=== PATIENT | female | born 1935 | race Caucasian/White ===

== ENCOUNTER 2017-05-27 16:36 | Observation (INO) | payer MEDICARE ==
[~2017-05-27] VITALS: Ht 152.4 cm; Wt 52.6 kg
[~2017-05-27 16:36] MED LIST: ACETIC ACID2 % AS; ACETIC ACID2 % OT; AMLODIPINE5 MG PO; AZITHROMYCIN500 MG OR; BROVANA15 MCG IN; BUDESONID2 IN; CALCITONIN200 MG/ACT; CLONAZEP ODT0.25 MG PO; CYANOCOBALAM1000 MCG IM; DEPO-MEDROL40 MG/ML IM; DOXYCYCL HYC100 MG OR; EQ IBUPROFEN200 MG PO; EVOXAC30 MG OR; FISH OIL1000 M1 PO; FLEXERIL5 M1 PO; FLOVENT DISK100 MCG IN; FLOVENT DISK250 MCG IN; FLOVENT HFA44 MCG; FLUOXETINE10 M3 PO; FUROSEMIDE20 MG PO; GABAPENTIN100 MG PO; GABAPENTIN300 MG PO; HYDROCHLORO25 MG/TAB PO; HYDROCHLOROT12.5 MG PO; HYDROCHLOROT25 MG; HYDROCHLOROT25 MG OR; K-DUR/KLOR-CON10 MEQ PO; LASIX 20 MG TAB20 MG PO; LEVALBUTERO1; LEVAQUIN500 MG PO; LEXAPRO5 MG PO; LYRICA25 MG PO; MEDDOSEPAK; MILK OF MAG2 PO; MINOCYCLINE100 MG PO; MUCINEX600 MG; MUCINEX600 MG OR; MYCOSTATIN100000 UNI; NEURONTIN100 MG PO; NYSTATIN100000 M1 OR; ONDANSETRON4 MG; PANTANASE; PERFOROMIST20 MCG IN; POLYTRIM OU; PREDNISODT10 OR; PROAIR HFA IN; PROVENTIL HFA IN; RAYOS5 MG PO; RYBIX ODT50 MG PO; SINGULAIR PO; SOLU-MEDROL125 MG IM; TETRACYCLINE250 MG PO; THEO-24200 MG PO; TIZANIDINE HCL4 MG OR; TIZANIDINE4 MG PO; TRAMADOL HCL50 MG PO; TRIVITA; VICODIN1 TA1 PO; WAL-PROFEN200 M1 PO; XANAX0.25 MG PO; XOPENEX0.63 MG; XOPENEX0.63 MG INH; ZITHROMAX250 MG PO; ZITHROMAX500 MG PO; ZPAK PO; [UNRECOGNIZED DRUG - CODE] PO; [UNRECOGNIZED DRUG - OTHER]; [UNRECOGNIZED DRUG - OTHER]
[2017-05-27 17:10] LABS: HEMATOCRIT 37.5 % (37.0-47.0); HEMOGLOBIN 12.5 g/dl (12.0-16.0); IMMATURE GRANULOCYTES 0.5 % (0.0-1.0); MEAN CELL VOLUME 90.8 fL CALC (80.0-100.0); MEAN CORPUSCULAR HGB 30.3 pG CALC (26.0-32.0); MEAN CORPUSCULAR HGB CONC 33.3 g/L CALC (32.0-36.0); NEUT# 7.98 thou/uL (2.00-7.15); RED BLOOD COUNT 4.13 mill/uL (4.20-5.60); RED CELL DISTRI WIDTH 13.5 % (11.5-15.5)
[2017-05-27 17:12] LABS: URINE BILIRUBIN - DIPSTICK NEGATIVE (NEGATIVE); URINE BLOOD DIPSTICK NEGATIVE (NEGATIVE); URINE COLOR YELLOW; URINE GLUCOSE - DIPSTICK NEGATIVE (NEGATIVE); URINE KETONE NEGATIVE (NEGATIVE); URINE LEUK ESTERASE NEGATIVE (NEGATIVE); URINE NITRITE - DIPSTICK NEGATIVE (Negative); URINE PROTEIN - DIPSTICK TRACE mg/dL (NEG-TRACE); URINE UROBILINOGEN - DIPSTICK 0.2 E.U./dL (0.2)
[2017-05-27 17:15] LABS: BARBITURATES NEGATIVE (NEGATIVE); COCAINE NEGATIVE (NEGATIVE); METHADONE NEGATIVE (NEGATIVE); OXCYCODONE NEGATIVE (NEGATIVE); TETRAHYDROCANNABIONOL NEGATIVE (NEGATIVE); TRICYLIC ANTIDEPRESSANTS NEGATIVE (NEGATIVE); URINE CLARITY CLEAR
[2017-05-27 17:27] LABS: ALBUMIN 4.5 g/dL (3.2-5.0); ANION GAP 19 (6-22 (CALC)); BILIRUBIN, TOTAL 0.4 mg/dL (0.0-1.4); BUN 20 mg/dL (8-23); BUN/CREATININE RATIO 23 (12-20 (CALC)); CARBON DIOXIDE 27 mmol/l (22-30); CHLORIDE 96 mmol/l (95-108); CREATININE 0.8 mg/dL (0.5-1.0); GFR > 60 ML/MIN (>=60 (CALC)); GFR FOR AFR.AMER. > 60 ML/MIN (>=60 (CALC)); POTASSIUM 3.9 mmol/l (3.5-5.1); SGOT/AST 20 u/l (9-36); SGPT/ALT 34 u/l (11-66); SODIUM 138 mmol/l (137-146); TOTAL PROTEIN 7.5 g/dL (6.3-8.2)
[2017-05-27 17:30] LABS: ALKALINE PHOSPHATASE 134 u/l (38-126)
[2017-05-27] MEDS ORDERED: SINGULAIR10 MG PO (17:55)
[2017-05-27] MEDS ORDERED: FLONASE AL50 MCG/ACT (17:59)
[2017-05-27] MEDS ORDERED: XANAX0.25 MG PO (18:03)
[2017-05-27] MEDS ORDERED: IBUPROFEN200 MG PO (18:05)
[2017-05-27] MEDS ORDERED: BACLOFEN10 MG PO (18:05)
[2017-05-27] MEDS ORDERED: ZOFRAN ODT4 MG PO (18:06)
[2017-05-27] MEDS ORDERED: LUTEIN40 MG PO (18:07)
[2017-05-27] MEDS ORDERED: STROMECTOL3 MG PO (18:08)
[2017-05-27] MEDS ORDERED: MUCINEX600 MG PO (18:09)
[2017-05-27 19:15] VITALS: BP 174/84
[2017-05-28] VITALS (7 sets, daily range): BP systolic 140–192; BP diastolic 57–78
[2017-05-28 05:46] LABS: HEMATOCRIT 33.9 % (37.0-47.0); HEMOGLOBIN 11.5 g/dl (12.0-16.0); IMMATURE GRANULOCYTES 0.4 % (0.0-1.0); MEAN CELL VOLUME 90.6 fL CALC (80.0-100.0); MEAN CORPUSCULAR HGB 30.7 pG CALC (26.0-32.0); MEAN CORPUSCULAR HGB CONC 33.9 g/L CALC (32.0-36.0); NEUT# 5.01 thou/uL (2.00-7.15); RED BLOOD COUNT 3.74 mill/uL (4.20-5.60); RED CELL DISTRI WIDTH 13.2 % (11.5-15.5)
[2017-05-28 05:50] LABS: ANION GAP 15 (6-22 (CALC)); BUN 14 mg/dL (8-23); BUN/CREATININE RATIO 17 (12-20 (CALC)); CARBON DIOXIDE 29 mmol/l (22-30); CHLORIDE 97 mmol/l (95-108); CREATININE 0.9 mg/dL (0.5-1.0); GFR 60 ML/MIN (>=60 (CALC)); GFR FOR AFR.AMER. > 60 ML/MIN (>=60 (CALC)); POTASSIUM 3.4 mmol/l (3.5-5.1); SODIUM 137 mmol/l (137-146)
[2017-05-29 00:05] VITALS: BP 189/74
[2017-05-29 05:00] LABS: HEMATOCRIT 36.8 % (37.0-47.0); HEMOGLOBIN 12.2 g/dl (12.0-16.0); IMMATURE GRANULOCYTES 0.6 % (0.0-1.0); MEAN CELL VOLUME 92.7 fL CALC (80.0-100.0); MEAN CORPUSCULAR HGB 30.7 pG CALC (26.0-32.0); MEAN CORPUSCULAR HGB CONC 33.2 g/L CALC (32.0-36.0); NEUT# 5.98 thou/uL (2.00-7.15); RED BLOOD COUNT 3.97 mill/uL (4.20-5.60); RED CELL DISTRI WIDTH 13.4 % (11.5-15.5)
[2017-05-29 05:07] VITALS: BP 142/68
[2017-05-29 05:09] LABS: ANION GAP 17 (6-22 (CALC)); BUN 22 mg/dL (8-23); BUN/CREATININE RATIO 24 (12-20 (CALC)); CARBON DIOXIDE 28 mmol/l (22-30); CHLORIDE 95 mmol/l (95-108); CREATININE 0.9 mg/dL (0.5-1.0); GFR 60 ML/MIN (>=60 (CALC)); GFR FOR AFR.AMER. > 60 ML/MIN (>=60 (CALC)); MAGNESIUM 1.9 mg/dL (1.6-2.3); POTASSIUM 3.9 mmol/l (3.5-5.1); SODIUM 136 mmol/l (137-146); TOTAL CHOLESTEROL 263 mg/dl (0-199); TOTAL TRIGLYCERIDES 101 mg/dl (30-149); VLDL CHOLESTROL 20 mg/dl (0-48 (CALC))
[2017-05-29 05:17] LABS: CALCULATED LDLCHOLESTEROL 113 mg/dL (62-129 (CALC)); HDL CHOLESTEROL 130 mg/dL (>=40)
[2017-05-29 08:20] VITALS: BP 131/62
[2017-05-29 11:05] VITALS: BP 162/65
[2017-05-29] MEDS ORDERED: METHYLPRED4 MG PO (13:47)
[2017-05-29] MEDS ORDERED: K-DUR/KLOR-CON20 MEQ PO (13:47)
[2017-05-29] MEDS ORDERED: CALCIUM + D PO (13:50)
[2017-05-29] MEDS ORDERED: B-12-SL1000 MCG SL (13:51)
[2017-05-29] MEDS ORDERED: VITAMIN K100 MC1 PO (13:51)
[2017-05-29] MEDS ORDERED: MAGNESIUM500 M1 PO (13:54)
[2017-05-29] MEDS ORDERED: ADLT ASA LOW81 MG PO (14:09)
[2017-05-29] MEDS ORDERED: LORTAB5 PO (14:09)
[2017-05-29] MEDS ORDERED: XARELTO15 MG PO (14:09)
[2017-05-29] MEDS ORDERED: VALIUM2 MG PO (14:09)
[2017-05-29 16:00] VITALS: BP 151/69
== END 2017-05-29 17:30 | disposition home health service (06) ==
LOC: ED 16:36 → ED-I 17:45 → ED 18:00 → MS2 18:01
PROVIDERS: Emergency Medicine; Nurse Practitioner Family; ADMIT Internal Medicine; ATTEND Internal Medicine
DX: R47.1 Dysarthria and anarthria (principal); I16.0 Hypertensive urgency; I10 Essential (primary) hypertension; M79.7 Fibromyalgia; I48.91 Unspecified atrial fibrillation; J44.9 Chronic obstructive pulmonary disease, unspecified; M81.0 Age-related osteoporosis without current pathological fracture; F41.9 Anxiety disorder, unspecified; F17.210 Nicotine dependence, cigarettes, uncomplicated; E87.6 Hypokalemia; R29.810 Facial weakness; H91.90 Unspecified hearing loss, unspecified ear

== ENCOUNTER 2019-02-15 02:09 | Inpatient (IN) | payer MEDICARE ==
[~2019-02-15] VITALS: Ht 152.4 cm; Wt 57.2 kg
[~2019-02-15 02:09] MED LIST changes: +ADLT ASA LOW81 MG PO; +B-12-SL1000 MCG SL; +BACLOFEN10 MG PO; +CALCIUM + D PO; +FLONASE AL50 MCG/ACT; +IBUPROFEN200 MG PO; +K-DUR/KLOR-CON20 MEQ PO; +LORTAB5 PO; +LUTEIN40 MG PO; +MAGNESIUM500 M1 PO; +METHYLPRED4 MG PO; +MUCINEX600 MG PO; +SINGULAIR10 MG PO; +STROMECTOL3 MG PO; +VALIUM2 MG PO; +VITAMIN K100 MC1 PO; +XARELTO15 MG PO; +ZOFRAN ODT4 MG PO
--- NOTE | 2019-02-15 02:09 | NUR ---
TO ROOM 12 VIA STRETCHER BY EMS
--- NOTE | 2019-02-15 02:50 | NUR ---
2 FAILED ATTEMPTS MADE AT IV ACCESS. PATIENT IS REPOSITIONING HERSELF RAPIDLY ON STRETCHER, ALMOST A JERKING MOTION. STATES BED IS UNCOMFORTABLE AND SHE HAS TO KEEP MOVING TO KEEP HER BACK FROM "GRABBING"
--- NOTE | 2019-02-15 03:15 | NUR ---
IV ESTABLISHED AFTER THREE UNSUCCESSFUL ATTEMPTS.
--- NOTE | 2019-02-15 03:34 | NUR ---
PATIENT MEDICATED ORDERED FOR PAIN. FAMILY ARRIVES AT BEDSIDE.
[2019-02-15 03:46] LABS: HEMATOCRIT 36.3 % (37.0-47.0); HEMOGLOBIN 12.1 g/dl (12.0-16.0); IMMATURE GRANULOCYTES 0.5 % (0.0-5.0); MEAN CELL VOLUME 89.9 fL CALC (80.0-100.0); MEAN CORPUSCULAR HGB CONC 33.3 g/L CALC (32.0-36.0); NEUT# 9.8 thou/uL (2.00-7.15); RED BLOOD COUNT 4.04 mill/uL (4.20-5.60); RED CELL DISTRI WIDTH 12.9 % (11.5-15.5)
[2019-02-15 03:55] LABS: ALBUMIN 4.2 g/dL (3.2-5.0); ALKALINE PHOSPHATASE 66 u/l (38-126); BUN 13 mg/dL (8-23); BUN/CREATININE RATIO 20 (12-20 (CALC)); CHLORIDE 89 mmol/l (95-108); CREATININE 0.6 mg/dL (0.5-1.0); GFR > 60 ML/MIN (>=60 (CALC)); GFR FOR AFR.AMER. > 60 ML/MIN (>=60 (CALC)); POTASSIUM 3.3 mmol/l (3.5-5.1); SGOT/AST 31 u/l (9-36)
[2019-02-15 03:56] LABS: ANION GAP 14 (6-22 (CALC)); BILIRUBIN, TOTAL 0.8 mg/dL (0.0-1.4); CARBON DIOXIDE 26 mmol/l (22-30); SODIUM 126 mmol/l (137-146)
--- NOTE | 2019-02-15 04:13 | NUR ---
PATIENT RETURNS TO DEPARTMENT. PATIENT IS SOMNOLENT, AROUSABLE WITH STIMULI. APPEARS PAIN FREE. AWAITING CT RESULTS AND PLAN OF CARE. FAMILY REMAINS AT BEDSIDE.
--- NOTE | 2019-02-15 05:45 | NUR ---
MD AT [facility] TO SPEAK WITH FAMILY. PATIENT REMAINS SOMNOLENT BUT AROUSABLE WITH NOXIOUS STIMULI. O2 SAT 100%. AWAITING PLAN OF CARE.
--- NOTE | 2019-02-15 06:10 | NUR ---
MD STATES PLAN OF CARE IS ALLOW PATIENT TO AWAKE AND SEE HOW SHE FEELS BEFORE DETERMINING ADMISSION VS DISCHARGE. FAMILY IS AWARE OF PLAN.
--- NOTE | 2019-02-15 06:55 | NUR ---
REPORT FROM TESS CHAMPION; PT RESTING WITH EYES CLOSED; ELIER AND DR ONTIVEROS AT BEDSIDE; PT RESPONDS TO STERNAL RUB; VSS; WILL CONTINUE TO MONITOR
--- NOTE | 2019-02-15 07:50 | NUR ---
PT ARRIVED VIA STRETCHER WITH STAFF. IV SITE IS INTACT. TELE MONITOR IN PLACE.
--- NOTE | 2019-02-15 07:50 | NUR ---
Admission Note Report Given to: NANCY MIDDLETON Transported by: Wheelchair X Stretcher Transported with: X Nurse Transporter X Patent IV X O2 X Inspector And Clipper
--- NOTE | 2019-02-15 09:20 | NUR ---
ASSESSMENT IS COMPLETED: IV SITE IS FREE FROM REDNESS OR EDEMA. HR IS REG, PULSES ARE STRONG X4, ABD IS SOFT WITH ACTIVE BS. BREATH SOUNDS ARE CLEAR, BILATERALLY. NO C/O SOB. CONTINUE TO OBSERVE AND MONITOR.
--- NOTE | 2019-02-15 12:00 | NUR ---
PT IS RELAXING IN BED WITH MO DISTRESS NOTED. IV SITE IS FREE FROM REDNESS OR EDEMA
[2019-02-15 15:26] VITALS: BP 194/83
--- NOTE | 2019-02-15 15:54 | NUR ---
PT IS VISITING WITH FAMILY IN THE ROOM. WANTING TO SEE THE DR AND WANTING TO GO HOME.
[2019-02-15 18:26] VITALS: BP 197/84
[2019-02-15 18:29] VITALS: BP 180/82
[2019-02-15 19:37] VITALS: BP 179/85
--- NOTE | 2019-02-15 20:42 | NUR ---
PT WAS SLEEPING SOUNDLY, UPON WAKING PT BY MY VOICE AND TOUCH, SHE BEGAN SAYING SHE COULDN'T BREATH AND CRYING OUT IN PAIN, ASKING FOR A XANAX. 02 ON NC @2L. PT ASSISTED IN SITTING ON THE SIDE OF THE BED. 02 SAT LEVEL 97% ON 2L AT THIS TIME. PT MEDICATED FOR BP. PT IS ASKING FOR HOSPICE AND STATING THAT SHE HAS TOLD HER FAMILY THAT SHE "WANTS TO GO TO HOSPICE."
[2019-02-15 20:55] VITALS: BP 158/75
--- NOTE | 2019-02-15 21:00 | NUR ---
PT MEDICATED FOR ANXIETY. ASSISTED PT IN REPOSITIONING. DISCUSSED PT STATUS AND BASELINE W/MACHINE ROPE MAKER AT THIS TIME.
[2019-02-16] VITALS (7 sets, daily range): BP systolic 128–178; BP diastolic 58–89
--- NOTE | 2019-02-16 02:47 | NUR ---
PT MEDICATED FOR PAIN. SHE COULD NOT FIND HER CALL LIGHT/LAYING AT HER SIDE ON THE BED. SHE WAS FOUND YELLING OUT PUSHING THE BUTTON ON THE FACTORER BOX. PT ASSISTED W/FRESH PO FLUIDS AND REPOSITIONED FOR COMFORT. PT REORIENTED TO CALL LIGHT, W/IN REACH AND BED ALARM ON.
[2019-02-16 05:58] LABS: HEMATOCRIT 37.3 % (37.0-47.0); HEMOGLOBIN 12.4 g/dl (12.0-16.0); IMMATURE GRANULOCYTES 0.3 % (0.0-5.0); MEAN CELL VOLUME 92.1 fL CALC (80.0-100.0); MEAN CORPUSCULAR HGB 30.6 pG CALC (26.0-32.0); MEAN CORPUSCULAR HGB CONC 33.2 g/L CALC (32.0-36.0); NEUT# 7.28 thou/uL (2.00-7.15); RED BLOOD COUNT 4.05 mill/uL (4.20-5.60); RED CELL DISTRI WIDTH 13.2 % (11.5-15.5)
[2019-02-16 06:11] LABS: ANION GAP 17 (6-22 (CALC)); BUN 14 mg/dL (8-23); BUN/CREATININE RATIO 21 (12-20 (CALC)); CARBON DIOXIDE 22 mmol/l (22-30); CHLORIDE 92 mmol/l (95-108); CREATININE 0.7 mg/dL (0.5-1.0); GFR > 60 ML/MIN (>=60 (CALC)); GFR FOR AFR.AMER. > 60 ML/MIN (>=60 (CALC)); POTASSIUM 3.6 mmol/l (3.5-5.1); SODIUM 128 mmol/l (137-146)
--- NOTE | 2019-02-16 07:30 | NUR ---
RESTING IN BED ON ROUNDS. SOMEWHAT ANXIOUS. PATIENT C/O BACK PAIN RATES 10/10. RESP SLT DYSPNEIC WITH EXERTION. REPOSTIONED IN BED AND MEDICATED FOR C/O BACK PAIN. SHIFT ASSESSMENT COMPLETED.
--- NOTE | 2019-02-16 12:15 | NUR ---
CALM AND COOPERATIVE AFTER XANAX GIVEN EARLIER. SITTING IN BED AT THIS TIME, EATING LUNCH.
--- NOTE | 2019-02-16 14:00 | NUR ---
FAMILY IN TO VISIT. PATIENT CONTINUES TO SIT UP IN RECLINER.
[2019-02-16 14:05] LABS: URINE BILIRUBIN - DIPSTICK NEGATIVE (NEGATIVE); URINE BLOOD DIPSTICK NEGATIVE (NEGATIVE); URINE COLOR YELLOW; URINE GLUCOSE - DIPSTICK NEGATIVE (NEGATIVE); URINE KETONE 15 mg/dL (NEGATIVE); URINE LEUK ESTERASE NEGATIVE (NEGATIVE); URINE NITRITE - DIPSTICK NEGATIVE (Negative); URINE PROTEIN - DIPSTICK NEGATIVE (NEG-TRACE); URINE UROBILINOGEN - DIPSTICK 0.2 E.U./dL (0.2)
--- NOTE | 2019-02-16 15:58 | NUR ---
SALINE LOCK IN LH FLUSHED AND PATENT WITH IV ANTIBIOTICS INFUSING INTERMITTENTLY. RESP NON-LABORED AT REST.
--- NOTE | 2019-02-16 17:00 | NUR ---
BACK TO BED WITH MINIMAL ASSIST.
--- NOTE | 2019-02-16 19:45 | NUR ---
PT UPRIGHT IN BED C/O ANXIETY STATING SHE IS HAVING A PANIC ATTACK. PT ASSISTED W/COMFORT MEASURES, WILL MEDICATE ORDERS ALLOW. PT APPEARS TEARY, NO SOB,LABORED BREATHING OR DISTRESS VISIBLE AT THIS TIME.
--- NOTE | 2019-02-16 20:00 | NUR ---
PT ASSESSMENT COMPLETED AT THIS TIME AND PT MEDICATED ORDERS PROVIDE. PT DENIES NEEDING PAIN MEDICATION AT THIS TIME. REPORTED HAVING "PANIC ATTACK," MEDICATED FOR ANXIETY AND COPING MEASURES PROVIDED, PT APPEARS TO BE FEELING BETTER, NO SOB OR S/O ANXIETY UPON PROPOSAL ANALYST LEAVING ROOM.
--- NOTE | 2019-02-16 23:50 | NUR ---
PT MEDICATED FOR ELEVATED BP AND ASSISTED TO BSC AND BACK TO BED. PT MEDICATED FOR PAIN AT THIS TIME. SLIGHTLY SOB UPON AMBULATING. PT ONLY NEEDED STANDBY ASSISTANCE AND SELF BOOSTED IN THE BED. CALL LIGHT IN HAND LIGHTS OFF, PT ENCOURAGED TO CALL NEEDS ARISE. DOOR LEFT OPEN.
[2019-02-17] VITALS (7 sets, daily range): BP systolic 130–163; BP diastolic 65–78
--- NOTE | 2019-02-17 01:50 | NUR ---
PT SLEEPING AT THIS TIME. NO S/O DISTRESS NOTED. CALL LIGHT W/IN REACH
--- NOTE | 2019-02-17 03:25 | NUR ---
PT SLEEPING, NO S/O DISTRESS NOTED.
[2019-02-17 06:44] LABS: BUN 16 mg/dL (8-23); BUN/CREATININE RATIO 24 (12-20 (CALC)); CARBON DIOXIDE 22 mmol/l (22-30); CHLORIDE 94 mmol/l (95-108); CREATININE 0.6 mg/dL (0.5-1.0); GFR > 60 ML/MIN (>=60 (CALC)); GFR FOR AFR.AMER. > 60 ML/MIN (>=60 (CALC)); SODIUM 129 mmol/l (137-146)
[2019-02-17 06:55] LABS: ANION GAP 18 (6-22 (CALC)); POTASSIUM 4.6 mmol/l (3.5-5.1)
--- NOTE | 2019-02-17 07:35 | NUR ---
SITTING UP IN RECLINER WITH LEGS ELEVATED. RESP NON-LABORED AT REST. USING O2 AT 2 L NC. BREATH SOUNDS CLEAR, DIMINISHED THROUGHOUT LUNG MASTERSON. BILATERL LOWER LEG EDEMA PRESNET, LEFT 4+, RIGHT 2-3+. SKIN ON LOWER LEGS REDDEDNED, TAUT AND SHINY. SALINE LOCK INTACT IN , SITE BENIGN. SHIFT ASSESSMENT COPLETED. DISCUSSED PLAN OF CARE. CALL ACOSTA IN REACH.
--- NOTE | 2019-02-17 12:00 | NUR ---
SITTING AT SIDE OF BED EATING LUNCH. GRANDSON IN VISITING. NO C/O VOICED AT THIS TIME.
--- NOTE | 2019-02-17 16:00 | NUR ---
MEDICATED FOR BACK PAIN ORDERED. UNABLE TO ADMINISTER IV ANTIBIOTICS D/T NO IV ACCESS PREVIOUS SALINE LOCK WAS LEAKING AND WAS DC'D. DISCUSSED WITH Amber SALGADO/DUONG AND WILL CHANGE TO PO ANTIBIOTIC, STATED OK TO LEAVE PATIENT WITHOUT IV ACCESS.
--- NOTE | 2019-02-17 19:00 | NUR ---
REPORT RECIEVED FROM TESS SANTANA. PT RESTING IN BED, FAMILY AT BEDSIDE. SAFETY PRECAUTIONS IN PLACE. WILL CONTINUE TO MONITOR.
--- NOTE | 2019-02-17 20:08 | NUR ---
PT RESTING IN BED, ALERT AND ORIENTED. RESPIRATIONS EVEN AND UNLABORED, ON O2 @ 2L VIA NC. PEDAL PULSES ARE STRONG. PT DENIES ANY PAIN OR DISCOMFORT AT THIS TIME. NO IV SITE MD AWARE. TELE IN PLACE. WILL CONTINUE TO MONITOR.
--- NOTE | 2019-02-17 23:59 | NUR ---
PT RESTING IN BED, PT FEELING ANXIOUS. PT MEDICATED PER EMAR REQUEST. SAFETY PRECAUTIONS IN PLACE. WILL CONTINUE TO MONITOR.
[2019-02-18 03:47] VITALS: BP 153/71
--- NOTE | 2019-02-18 04:00 | NUR ---
PT X1 ASSISTED TO THE BSC, EXCERSIONAL SOB, WHEEZING NOTED. PT ASSISTED BACK INTO BED. PT PROVIDED WITH ICE WATER PER REQUEST. SAFETY PRECAUTIONS IN PLACE. WILL CONTINUE TO MONITOR.
[2019-02-18 06:01] LABS: ANION GAP 13 (6-22 (CALC)); BUN 22 mg/dL (8-23); BUN/CREATININE RATIO 27 (12-20 (CALC)); CARBON DIOXIDE 26 mmol/l (22-30); CHLORIDE 93 mmol/l (95-108); CREATININE 0.8 mg/dL (0.5-1.0); GFR > 60 ML/MIN (>=60 (CALC)); GFR FOR AFR.AMER. > 60 ML/MIN (>=60 (CALC)); MAGNESIUM 2.2 mg/dL (1.6-2.3); POTASSIUM 4.4 mmol/l (3.5-5.1); SODIUM 127 mmol/l (137-146)
[2019-02-18 07:50] VITALS: BP 137/54
--- NOTE | 2019-02-18 07:50 | NUR ---
PATIENT AWAKE, RESTING IN BED ON ROUNDS. RESP EVEN AND UNLABORED AT REST. O2 ON AT 2 L NC. BREATH SOUNDS DIMINISHED THROUGHOUT, ESSENTIALLY CLEAR. COUGH PRODUCTIVE THIS MORNING OF THICK YELLOW SPUTUM. BLE PITTING EDEMA PRESENT, 2+ ON RLE AND 3+ ON LLE. PERIPEHRAL PULSES PALPABLE. ASSISTED PATIENT TO BSC, DYSPNEIC AND BECOMES ANXIOUS WITH ACTIVITY. VOIDS ON BSC. AMBULATED IN ROOM WITH ASSIST FROM BSC TO RECLINER. RESTING WITH LEGS ELEVATED. CALL ACOSTA IN REACH.
[2019-02-18 11:21] VITALS: BP 131/62
--- NOTE | 2019-02-18 11:54 | NUR ---
SITTING UP IN CHAIR FOR LUNCH. NO COMPLAINTS VOICED. CALL ACOSTA IN REACH.
[2019-02-18] MEDS ORDERED: ZITHROMAX250 MG PO (12:23)
[2019-02-18] MEDS ORDERED: PREDNISONE10 MG PO (12:23)
[2019-02-18] MEDS ORDERED: SOD CHLORIDE1 GM PO (12:23)
[2019-02-18] MEDS ORDERED: PERCOCET 5/325M1 TAB PO (12:23)
--- NOTE | 2019-02-18 14:07 | NUR ---
[facility] SCORE TODAY: 14 POINTS PT WILL BENEFIT FROM SHORT-TERM IN-PT REHAB OR HOME HEALTH PHYS THERAPY IF CONDITION IMPROVES. PT REPORTS FEELING NOT GOOD YESTERDAY. HER SPO2 ON ROOM AIR DROPPED FROM 91% TO 84% WITH SUPPLEMENTARY O2 AT 2L WITH GRADE III (CONSIDERABLE) DYSPNEA WHILE CONVERSING WITH ME. SHE AMBULATED W/ RW AND MIN A ~60 FT X 2 WITH REST BREAK JAIL REQUESTED. SHE DESATURATED TO 84% WHILE AMBULATING EVEN WITH 2L OF O2. PT APPEARED WEAKER TODAY THAN YESTERDAY. SHE RETURNED TO HER ROOM AND SAT DOWN IN THE RECLINER WITH VCS ON HAND PLACEMENT FOR CONTROLLED DESCENT. SUPPL O2 REATTACHED, SPO2 RETURNED TO 91% AFTER PURSED LIP BREATHING.
== END 2019-02-18 17:00 | disposition home health service (06) | DRG 543 ==
LOC: ED 02:09 → ED-I 02:29 → ED 07:09 → MS2 07:10
PROVIDERS: Emergency Medicine; Nurse Practitioner Family; ADMIT Internal Medicine; ATTEND Internal Medicine
DX: M48.56XA Collapsed vertebra, not elsewhere classified, lumbar region, initial encounter for fracture (principal); E87.1 Hypo-osmolality and hyponatremia; M48.54XA Collapsed vertebra, not elsewhere classified, thoracic region, initial encounter for fracture; J43.9 Emphysema, unspecified; I10 Essential (primary) hypertension; E87.6 Hypokalemia; M79.7 Fibromyalgia; M62.830 Muscle spasm of back; Z87.891 Personal history of nicotine dependence; Z99.81 Dependence on supplemental oxygen